=== PATIENT | male | born 1950 | race Caucasian/White ===

== ENCOUNTER 2018-09-22 13:22 | Inpatient (IN) | payer BC ==
[~2018-09-22] VITALS: Ht 179.1 cm; Wt 90.0 kg
[2018-10-06] VITALS (10 sets, daily range): BP systolic 113–154; BP diastolic 59–82; PULSE 80–89; TEMP 97.2–97.7
[2018-10-06] MEDS ORDERED: FLONASEALLERGY NS (13:00)
[2018-10-06] MEDS ORDERED: ASPIRIN 81M81 MG/TA2 PO (13:00)
[2018-10-06] MEDS ORDERED: CENTRUM SILVER1 TAB PO (13:01)
[2018-10-06] MEDS ORDERED: OMEGA-3 1000 MG1 CAP PO (13:01)
[2018-10-06] MEDS ORDERED: FOLIC ACID0.4 MG PO (13:02)
[2018-10-06] MEDS ORDERED: B-12 100 MCG PO (13:02)
[2018-10-06] MEDS ORDERED: VITAMIN D 1001000 IU PO (13:02)
[2018-10-06 13:24] LABS: HEMATOCRIT 46.6 % (42.0-52.0); HEMOGLOBIN 15.8 g/dl (13.5-18.0)
--- NOTE | 2018-10-06 13:32 | NUR ---
The patient ambulated back to [place] [facility] independently using a steady gait and appeared to tolerate the activity well. Vital signs obtained. Consent signed. 18G IV started in left hand with one stick, LR Infusing without difficulty. Blood obtained from IV start for labs as ordered. Heart Reg. Lungs clear. Bowel sounds audible. Call light is within reach. brought back to be at his bedside. The patient denies any needs at this time. Will continue to monitor the patient.
[2018-10-06 13:45] LABS: CALCIUM 9.3 mg/dL (8.4-10.2); CREATININE, serum 0.79 mg/dL (0.66-1.25); POTASSIUM 3.9 mmol/L (3.4-5.0)
--- NOTE | 2018-10-06 19:45 | NUR ---
Received patient per bed from PACU. Is alert,drowsy. at bedside. Connected to VS machine. Patient has midline abdominal dressing with 2 Terrie drains, dry and intact. Placed drains to LIS with bloody drainage noted. Has enrique to BSD with pink tinged urine. SL to right wrist without redness or swelling and IVF to left hand infusing without redness or swelling. Patient has an Epidural line with continuous infusion at 6cc/hr, denies pain to abdomen, reports achiness to tip of penis. Oriented to bed controls, including call light and head/foot adjustment. Placed epidural control with patient, reminding to use if needing extra dosing. Patient verbalized understanding.
--- NOTE | 2018-10-06 23:30 | NUR ---
Patient has turned slightly to the right for sleeping. No concerns voiced at this time.
[2018-10-07] VITALS (7 sets, daily range): BP systolic 99–117; BP diastolic 51–65; PULSE 76–101; TEMP 97.2–98.8
--- NOTE | 2018-10-07 05:00 | NUR ---
Patient awake, uses IS at this time. Denies pain, epidural continues. Has 1150 of pink tinged urine from enrique and 30cc bloody drainage from Terrie drains. Midline drsg with shadowing, no nausea at this time.
[2018-10-07 06:06] LABS: MEAN CELL VOLUME 94 fl (80.0-100.0); MEAN CORPUSCULAR HGB CONC 34 g/dl (33.0-37.0); MEAN PLATELET VOLUME 10.8 fl (7.4-10.4); PLATELET COUNT 189 K/mm3 (130-400); RED BLOOD COUNT 3.83 M/mm3 (4.20-5.60); REDCELL DISTRIBUTION WIDTH-CV 12.9 % (11.5-14.5)
[2018-10-07 06:12] LABS: HEMATOCRIT 35.8 % (42.0-52.0); HEMOGLOBIN 12.2 g/dl (13.5-18.0); MEAN CORPUSCULAR HEMOGLOBIN 32 pg (27.0-31.0)
[2018-10-07 06:24] LABS: CALCIUM 8.4 mg/dL (8.4-10.2); CREATININE, serum 0.68 mg/dL (0.66-1.25); POTASSIUM 5.4 mmol/L (3.4-5.0)
[2018-10-07 06:39] LABS: BAND 12 % (0-10); LYMPHOCYTE 6 % (20.0-51.0); NEUTROPHILS 82 % (42.0-75.2); PLATELET ESTIMATE NORMAL (NORMAL)
--- NOTE | 2018-10-07 10:42 | NUR ---
Initial visit; Patient and his thanked Glass Blowing Instructor for offering God's blessings along with visiting and offering encouragement.
--- NOTE | 2018-10-07 11:03 | NUR ---
found patient resting in bed. preformed morning assessment. ppatient was admitted due to a small bowel obstruction. he has complained of pain. administered PRN pain medication. changed out normal saline 1000ml and flushed the IV site. IV site show now signs of infection or infiltration.
--- NOTE | 2018-10-07 11:08 | NUR ---
cut off ady lazcano and applied bag. ;eft 3 inches of both tubes inserted into the bag. inscision site was clean and intact. there were 19 alejandro all of them were intact along 4 inches of inscision. pt tolerated it well and verbilized no further needs
--- NOTE | 2018-10-07 11:22 | NUR ---
NARCISA and SW student met with the patient to discuss discharge plan. The patient lives in [place] with his , Jessica. He reports independence with ADLs and does not use any DME. The patient's PCP is Dr. Salvatore Triplett and he receives his medications at the [facility]. He reports no difficulties obtaining his meds. The patient does not have advanced directives, but he was interested in obtaining a form for DPOA-HC. SW provided. The patient plans to return home with his upon discharge. No additional needs at this time.
--- NOTE | 2018-10-07 13:35 | NUR ---
abulated patient in his room. the epidural connection was broken. called anesthesia and the line was repaired. patient stated no pain. reported off rachel wilson RN
--- NOTE | 2018-10-07 13:37 | NUR ---
after replacing the tiffany drain with an attached bag there is a small amount of drainage.
--- NOTE | 2018-10-07 20:15 | NUR ---
Drain bag covering ady drains leaking from beneath adhesive. Replaced with new ostomy bag at this time. Renny to lower midline incision intact, new light gauze dressing applied. Lopez cath care given, urine yellow. Bowel sounds active. Has epidural at 5cc/hr continuous, dressing intact to back. Lungs clear, uses IS well. Taking fluids well, no nausea or vomiting, denies pain. SL to right wrist and IVF infusing to left hand without redness or swelling. Will INT left hand IV site after current bag infused.
[2018-10-08 04:56] VITALS: BP 105/61; PULSE 73; TEMP 98.1
--- NOTE | 2018-10-08 06:30 | NUR ---
Patient awake, denies pain. Lopez with excellent output. No drainage from Etrrie drains to empty this AM. Epidural continues.
--- NOTE | 2018-10-08 07:13 | NUR ---
RECEIVED REPORT FROM OFF-GOING NURSE. PATIENT IS ALERT AND ORIENTED X3. PASSED GAS THIS MORNING. ESCOBAR OUTPUT OF 3100 OVER THE NIGHT. PATIENT HAS NO COMPLAINTS AT THIS TIME. EPIDURAL CONTINUES.
--- NOTE | 2018-10-08 07:49 | NUR ---
PATIENT RECEIVED 5MG OF PERCOCET. EPIDURAL SHUT OFF AT THIS TIME. PATIENT HAS NO COMPLAINT OF PAIN AT THIS TIME. WILL CONTINUE TO MONITOR.
[2018-10-08 08:00] VITALS: BP 114/60; PULSE 74; TEMP 97.5
--- NOTE | 2018-10-08 08:30 | NUR ---
PATIENT IS A&0. VSS. REPORT LITTLE PAIN OR DISCOMFORT. PATIENT IS C/O MILD ITCHING. PATIENT REFUSES BENADRYL AT THIS TIME. PATIENT WAS PREMEDICATED EARLY THIS AM AND EPID SHUT OFF. EPIDURAL NOW DC'D PER ORDERS. PATIENT TOLERATED WELL. ASSISTED PATIENT INTO BEDSIDE CHAIR WITH STAND BY ASSIST. ESCOBAR TO DEPENDENT DRAINAGE WITH SMALL AMOUNTS OF CLEAR YELLOW URINE NOTED. RIGHT AND LEFT WRIST IV'S TO INT. NO C/O N/V. PATIENT TOLERATED CLEAR LIQUID DIET AND REQUESTING TO ADVANCE DIET. NURSING REFFERED TO UROLOGIST. ABDOMIN IS ROUND, SOFT AND WITH SOME BOWL SOUNDS. MELLY DRAINS ARE CUT AND BAGGED WITH SMALL AMOUNTS OF DRAINAGE NOTED. HEAD TO TOE ASSESSMENT COMPLETE. AT BEDSIDE. NO OTHER NEEDS. CALL LIGHT IN REACH.
--- NOTE | 2018-10-08 11:44 | NUR ---
Follow-up visit; Patient and his thanked Clerical Administrator for laughing with them about our rescued dogs and just visiting. Patient states he will be discharged soon and thanked Clerical Administrator for her visits and keeping him in her prayers.
[2018-10-08 12:25] VITALS: BP 125/58; PULSE 86; TEMP 97.8
--- NOTE | 2018-10-08 13:05 | NUR ---
PATIENT STATED HE WAS STARTING TO FEEL HIS INCISION SITE AND C/O AN ACHING PAIN AT A 3. PATIENT WAS GIVEN 5MG OF PERCOCET. PATIENT SITTING IN CHAIR WITH . PATIENT HAS NO COMPLAINTS AT THIS TIME. WILL CONTINUE TO MONITOR
[2018-10-08 16:10] VITALS: BP 128/69; PULSE 79; TEMP 97.8
[2018-10-08 20:35] VITALS: BP 125/66; PULSE 77; TEMP 98
--- NOTE | 2018-10-09 06:03 | NUR ---
Patient rested well overnight. Lopez catheter remains in place draining clear yellow urine. Administered PRN pain medication at HS, has denied further pain. This morning patient states that he is sore, but declines pain medication at this time. Patient had a blood tinged coffee ground stool this morning. Midline and susy drain site are CDI. Epidural site has a bandaid that appears CDI. Patient up to bedside recliner this morning. Patient denies further needs at this time, call light within reach.
[2018-10-09 06:17] VITALS: BP 137/65; PULSE 77; TEMP 97.7
[2018-10-09 09:59] VITALS: BP 140/66; PULSE 82; TEMP 98.9
--- NOTE | 2018-10-09 11:30 | NUR ---
Patient is sitting up in bed. Denies pain. No complaints of nausea. Explained the leg bag and how it works. Discussed how to change from the large bag to the leg bag and back. Encouraged patient to only use the leg bag when he is leaving the house. Explained importance of washing hands before changing the bags. Explained the ointments, how to use them and how to perform catheter care. Explained to clean catheter twice a day. No other changes at this time. Call light within reach.
--- NOTE | 2018-10-09 13:15 | NUR ---
Patient is discharging home. Discharge instructions discussed with patient. He already has his follow up appointment scheduled. He has his prescriptions filled already. All belongings packed up and sent with patient. Copies of discharge instructions sent with patient. Patient walked out via wheel chair by GERARD.
== END 2018-10-09 13:15 | disposition home or self-care (01) | DRG 708 ==
LOC: SURG 10-06 07:30 → INPTSU 10-06 11:59 → SURG 10-06 11:59
PROVIDERS: Nurse Anesthetist, Certified Registered; ADMIT Urology
PROC: 0VT00ZZ Resection of Prostate, Open Approach (ICD-10-PCS; principal; 2018-10-06 14:45)
DX: C61 Malignant neoplasm of prostate (principal)
CPT/HCPCS: A9284; J0690; J1100; J2250; J2270; J2370; J2405; J2704; J2710; J2795; J3010; J3480; J7120